=== PATIENT | male | born 1985 | race American Indian/Alaskan Native ===

== ENCOUNTER 2020-10-03 10:39 | Emergency (ER) | payer SELFPAY ==
--- NOTE | 2020-10-03 11:05 | Emergency Department Report ---
ED General Adult HPI - General Chief complaint: Nausea/Vomiting/Diarrhea Stated complaint: N/V PUI?: No Time Seen by Provider: 10/03/20 11:04 Source: patient, EMS ( EMS documentation not available at time of chart dictati on ), RN notes reviewed Mode of arrival: Ambulatory Limitations: No Limitations - History of Present Illness Initial comments: The patient is a 35-year-old gentleman. This patient is not known to myself previously. He has a history of tobacco and cannabis use, but otherwise denies chronic medical conditions. He presents to the ER today with a complaint of cramping, nausea, vomiting, malaise and weakness. He reports that he felt like he was in his usual state of health yesterday, when at around 5:00 PM or so, decided that he wanted to take a hot shower. He was in the shower for around 20 to 30 minutes, and reports feeling that his whole body was locking up, cramping, and he reports 20 episodes of nausea and vomiting. This is not happened to him in the past and this degree. He currently denies headache, neck pain, chest pain, abdominal pain, shortness of breath. He reports lesser degree of symptoms in the past when working outside. The patient denies heart drug use and intravenous drug use. He denies Covid symptomatology. He endorses a sore throat at this time. His symptoms are mostl y resolved, but he still feels a little bit weak, and crampy. He has not received a COVID-19 vaccination. -: Gradual, minutes(s) Location: back, abdomen, left, right, upper extremity, lower extremity Radiation: extremity, abdomen Severity scale (0 -10): 9 Quality: aching Consistency: constant Improves with: none Worsens with: eating ED Review of Systems ROS: Stated complaint: N/V Other details as noted in HPI Constitutional: malaise, weakness. denies: fever Eyes: denies: eye discharge ENT: denies: epistaxis Respiratory: denies: cough, shortness of breath Cardiovascular: denies: chest pain Gastrointestinal: nausea, vomiting. denies: abdominal pain, hematemesis, melena, hematochezia Genitourinary: denies: dysuria Musculoskeletal: back pain, arthralgia, myalgia Hematological/Lymphatic: denies: easy bleeding ED Past Medical Hx - Past Medical History Previous Medical History?: No - Surgical History Past Surgical History?: No ED Physical Exam - General Limitations: No Limitations General appearance: alert, in no apparent distress - Head Head exam: Present: atraumatic, normocephalic - Eye Eye exam: Present: normal appearance, EOMI. Absent: nystagmus - ENT ENT exam: Present: normal exam, normal orophraynx, mucous membranes moist, normal external ear exam - Neck Neck exam: Present: normal inspection, full ROM. Absent: tenderness, meningismus - Respiratory Respiratory exam: Present: normal lung sounds bilaterally. Absent: respiratory distress, wheezes, rales, rhonchi, stridor, decreased breath sounds - Cardiovascular Cardiovascular Exam: Present: regular rate, normal rhythm, normal heart sounds. Absent: bradycardia, tachycardia, irregular rhythm, systolic murmur, diastolic murmur, rubs, gallop - GI/Abdominal GI/Abdominal exam: Present: soft. Absent: distended, tenderness, guarding, rebound, rigid, pulsatile mass - Rectal Rectal exam: Present: deferred - Extremities Exam Extremities exam: Present: normal inspection, full ROM, other (2+ pulses noted in the bilateral upper and lower extremities. There is no palpable cord. negative Homans sign. Muscular compartments are soft. The pelvis is stable.). Absent: pedal edema, calf tenderness - Back Exam Back exam: Present: normal inspection, full ROM. Absent: tenderness, CVA tenderness (R), CVA tenderness (L), paraspinal tenderness, vertebral tenderness - Neurological Exam Neurological exam: Present: alert, oriented X3, normal gait, other (No facial droop. Tongue midline. Extraocular movements intact bilaterally. Facial sensation intact to light touch in V1, V2, V3 distribution bilaterally. 5 and a 5 strength in 4 extremities. Sensation intact to light touch in 4 extremities.). Absent: motor sensory deficit - Psychiatric Psychiatric exam: Present: normal affect, normal mood - Skin Skin exam: Present: warm, dry, intact, normal color. Absent: rash ED Course Vital Signs 10/03/20 10:52 Temperature 99.0 F Pulse Rate 90 Respiratory 18 Rate Blood Pressure 161/103 [Right] O2 Sat by Pulse 99 Oximetry - Reevaluation(s) Reevaluation #1: 10/03/20 11:59 Differential diagnosis, including but not limited to: Dehydration, electrolyte derangement, azotemia, uremia, renal insufficiency, hepatic insufficiency, elevated CK/rhabdomyolysis Assessment and plan: 35-year-old gentleman, with elevated blood pressure, who is otherwise afebrile with reassuring vital signs, with a complaint of profuse nausea and vomiting, cramping. He is found to have renal insufficiency, metabolic acidosis of unknown duration and chronicity. He does appear to be fairly comfortable at this time, abdomen is soft and benign, without rebound, guarding or peritoneal sign. We will start IV fluids, and antiemetics. We will discuss with nephrology on- call, Dr. Arizmendi. Anticipate admission for evaluation, and treatment of renal insufficiency. 10/03/20 12:06 Have discussed patient's history, physical, pertinent laboratory studies with nephrology on-call, Dr. Arizmendi. Admission is recommended. He will follow in consultation. Low-dose Norvasc for elevated blood pressure. Have discussed this plan of care with the patient. He is amenable to admission for the aforementioned. Hospital physician, Dr. Jaimes, to admit to the medical service. - Consultations Consultation #1: 10/03/20 12:06 Discussed history, physical, laboratory studies with nephrology on-call, Dr. Arizmendi. Admission is recommended for supportive care, and expedited work-up. He will follow in consultation. ED Medical Decision Making - Lab Data Result diagrams: 10/03/20 11:09 10/03/20 11:09 Vital Signs 10/03/20 10:52 Temperature 99.0 F Pulse Rate 90 Respiratory 18 Rate Blood Pressure 161/103 [Right] O2 Sat by Pulse 99 Oximetry Lab Results 10/03/20 10/03/20 Range/Units 11:09 11:09 Hgb 17.2 H (11.8-15.2) gm/dl Hct 49.8 H (35.5-45.6) % Plt Count 258 (140-440) K/mm3 Sodium 136 L (137-145) mmol/L Potassium 3.4 L (3.6-5.0) mmol/L Chloride 92.3 L (98-107) mmol/L Carbon Dioxide 26 (22-30) mmol/L Anion Gap 21 mmol/L BUN 25 H (9-20) mg/dL Creatinine 3.2 H (0.8-1.3) mg/dL Estimated GFR 27 ml/min BUN/Creatinine Ratio 8 % Glucose 155 H (75-100) mg/dL Calcium 10.0 (8.4-10.2) mg/dL Magnesium 2.30 (1.7-2.3) mg/dL Total Bilirubin 0.80 (0.1-1.2) mg/dL AST 75 H (5-40) units/L ALT 31 (7-56) units/L Alkaline Phosphatase 68 (35-129) units/L Total Protein 8.6 H (6.3-8.2) g/dL Albumin 5.2 H (3.9-5) g/dL Albumin/Globulin Ratio 1.5 % - EKG Data -: EKG Interpreted by In EKG shows normal: sinus rhythm Rate: normal - EKG Data When compared to previous EKG there are: previous EKG unavailable 10/03/20 11:58 The EKG is interpreted at 11: 39 AM Sinus rhythm, 80 bpm. Normal axis, normal intervals, high left ventricular voltage. Abnormal EKG, motion artifact. Not a STEMI. There is no prior for comparison. Critical care attestation.: If time is entered above; I have spent that time in minutes in the direct care of this critically ill patient, excluding procedure time. ED Disposition Clinical Impression: Elevated blood pressure reading, Renal insufficiency, Metabolic acidosis, Nausea and vomiting, Dehydration, History of marijuana use Disposition: OP ADMIT IP TO THIS HOSP Is pt being admited?: Yes Does the pt Need Aspirin: No Condition: Good
[2020-10-03 11:27] LABS: Hematocrit 49.8 % (35.5-45.6); Hemoglobin 17.2 gm/dl (11.8-15.2)
[2020-10-03 11:46] LABS: Albumin 5.2 g/dL (3.9-5)
[2020-10-03] MEDS ORDERED: ONDANSETRON 4 MG/2 ML INJ IV NR (11:52)
[2020-10-03] MEDS ORDERED: SODIUM CHLORIDE 0.9% 1000 ML 2,000 ML IV ONE ×2 (11:52→14:11)
[2020-10-03] MEDS ORDERED: amLODIPine 5 MG TAB PO NR (12:04)
[2020-10-03] MEDS ORDERED: SODIUM CHLORIDE 0.9% 1000 ML 1,000 ML IV ONE ×2 (12:29→14:25)
--- NOTE | 2020-10-03 13:16 | Event Note ---
Date: 10/03/20 Patient seen and evaluated in the emergency department. Patient found to be volume depleted and unable to make urine at the time my evaluation. Patient treated with IV fluid resuscitation. We will repeat CK and BMP after fluid resuscitation. Urinalysis is pending.
[2020-10-03 14:43] LABS: Bilirubin,Urine NEG (Negative); Blood,Urine SM (Negative); Color,Urine Yellow (Yellow); Hyaline Casts,Urine 1 /LPF; Mucus,Urine FEW /HPF; Urobilinogen,Urine < 2.0 mg/dL (<2.0)
[2020-10-03 14:48] LABS: Amphetamine Screen,Urine PRESUMPTIVE NEGATIVE; Benzodiazepines Screen,Urine PRESUMPTIVE NEGATIVE; Cannabinoid Screen,Urine PRESUMPTIVE POSITIVE; Cocaine Screen,Urine PRESUMPTIVE NEGATIVE; Creatinine,Urine 304.8 mg/dL (0.1-20.0); Methadone Screen,Urine PRESUMPTIVE NEGATIVE; Opiate Screen,Urine PRESUMPTIVE NEGATIVE
[2020-10-03 14:50] LABS: Osmolality,Urine 299 Mosm/kg
[2020-10-03] MEDS ORDERED: PHENOL 1.4% 177 ML BOTTLE MM PRN (15:23)
[2020-10-03 18:21] VITALS: BP 130/86
--- NOTE | 2020-10-04 10:52 | Electrocardiograph Report ---
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
== END 2020-10-03 18:25 | disposition admitted as inpatient to this hospital (09) ==
LOC: ED 10:39
DX: N28.9 Disorder of kidney and ureter, unspecified (principal); E87.2 Acidosis; E86.0 Dehydration; R03.0 Elevated blood-pressure reading, without diagnosis of hypertension; F12.90 Cannabis use, unspecified, uncomplicated; Z79.899 Other long term (current) drug therapy
CPT/HCPCS: 36415; 80048; 80053; 80307; 81001; 82550; 82570; 83735; 83935; 84300; 84443; 84550; 85014; 85018; 85049; 93005; 96361; 96374; 99284; J2405; J7030; 80320; G0480